=== PATIENT | female | born 1965 | race Caucasian/White ===

== ENCOUNTER 2016-08-06 08:20 | Emergency (ER) | payer BC ==
[2016-08-06] MEDS ORDERED: methylPREDNISolone 125 MG* 2 ML VIAL IV ONE (08:33)
[2016-08-06] MEDS ORDERED: NS 0.9% 1000 ML* 1,000 ML IV ONE (08:33)
[2016-08-06] MEDS: Albuterol/Ipratropium NEB.SOL* Albuterol 2.5 MG/Ipratropium 0.5 MG 3 ML INH SCH ×3 (08:52→09:49)
[2016-08-06 09:05] LABS: Hematocrit 41 % (35-47); Hemoglobin 14.2 g/dl (12.0-16.0); Mean Corpuscular HGB Conc 34 g/dl (31-36); Mean Corpuscular Hemoglobin 31 pg (27-31); Mean Corpuscular Volume 91 fL (80-97); Mean Platelet Volume 8 um3 (7.4-10.4); Red Blood Count 4.53 10^6/ul (4.0-5.4); Red Cell Distribution Width 12 % (10.5-15); White Blood Count 10.4 10^3/ul (3.5-10.8)
[2016-08-06 09:21] LABS: Albumin 3.8 g/dL (3.2-5.2); BUN/Creatinine Ratio 13.6 (8-20); C Reactive Protein 97.11 mg/L (< 5.00); Calcium 9.1 mg/dL (8.6-10.3); EGFR African American 121.9 (>60); EGFR Non-African American 94.8 (>60); Globulin 3.9 g/dL (2-4); Potassium 3.5 mmol/L (3.5-5.0); Total Bilirubin 0.8 mg/dL (0.2-1.0); Total Protein 7.7 g/dL (6.4-8.9)
[2016-08-06 09:23] LABS: Troponin I 0.01 ng/mL (<0.04)
--- NOTE | 2016-08-06 10:20 | RAD ---
Indication: Shortness of breath. Single frontal view of the chest performed at 0838 hours was reviewed. Comparison is made with previous exam dated March 06, 2011. No mediastinal shift is noted. Airspace disease in the lingula with silhouetting of the left cardiac border is noted consistent with lingular pneumonia. Right lung field is clear. IMPRESSION: FINDINGS SUGGESTIVE OF LINGULAR PNEUMONIA.
[2016-08-06 11:26] LABS: Urine Bacteria 1+ (Absent); Urine Bilirubin Negative (Negative); Urine Glucose Negative (Negative); Urine Nitrite Negative (Negative)
[2016-08-06] MEDS ORDERED: Levofloxacin 750 MG IVPREMIX(* 750 MG/150 ML BAG IVPB ONE (11:29)
[2016-08-06 13:33] VITALS: BP 122/71
--- NOTE | 2016-08-06 17:44 | ED ---
Sae Hutchinson Michael, scribed for Thomas Arevalo MD on 08/06/16 at 0836 . Respiratory - HPI Summary HPI Summary: 51 y/o female comes to the ED presenting with a non-productive cough and fever for the past week. The pt reports that she visited a doctor's office 4 days ago , and she was prescribed Augmentin. The abx has not alleviated her symptoms, and the cough has worsened since the visit. The cough aggravates the pt's asthma. The pt also c/o fatigue and chest pain upon deep breaths and coughing. The PMHx is significant for COPD and asthma. The FHx is significant for asthma. - History of Current Complaint Chief Complaint: EDAsthma Stated Complaint: DIFF BREATHING / ASTHMA Time Seen by Provider: 08/06/16 08:33 Hx Obtained From: Patient, Medical Records Onset/Duration: Gradual Onset, Lasting Weeks, Still Present Timing: Constant Initial Severity: Moderate Current Severity: Moderate Pain Intensity: 5 Character: Cough (Nonproductive) Alleviating Factor(s): Nothing Associated Signs and Symptoms: Fever - fatigue. cough., Chest Pain with Cough - Allergy/Home Medications Allergies/Adverse Reactions: Allergies Allergy/AdvReac Type Severity Reaction Status Date / Time No Known Allergies Allergy Verified 08/06/16 08:22 PMH/Surg Hx/FS Hx/Imm Hx Respiratory History: Reports: Hx Asthma, Hx Chronic Obstructive Pulmonary Disease (COPD), Hx Pneumonia - Cancer History Hx Chemotherapy: No Hx Radiation Therapy: No Infectious Disease History: No Infectious Disease History: Denies: Traveled Outside the [place] in Last 30 Days - Family History Known Family History: Positive: Other - asthma - Social History Occupation: Employed Full-time Lives: With Family Review of Systems Positive: Fever, Fatigue Positive: Chest Pain Positive: Cough All Other Systems Reviewed And Are Negative: Yes Physical Exam - Summary Physical Exam Summary: VITAL SIGNS: Reviewed. GENERAL: Patient is a well developed and nourished female with some distress secondary to the shortness of breath. However, she is able to speak in full sentences. HEAD AND FACE: Normocephalic and atraumatic. EYES: PERRLA, EOMI x 2, No injected conjunctiva. EARS: Hearing grossly intact. Ear canals and tympanic membranes WNL MOUTH: Dry oral mucosa. NECK: Supple, trachea is midline, no adenopathy, no JVD, no carotid bruit. CHEST: Symmetric, No intercostal or abdominal retraction, LUNGS: Diffuse bilateral wheezing and decreased breath sounds.No crackles. CVS: RRR,, S1 and S2 present, no murmurs or gallops appreciated. ABDOMEN: Soft, non-tender. No signs of distention. Positive BS. No rebound, no guarding, and no masses palpated. EXTREMITIES: FROM in all major joints, no edema, no cyanosis or clubbing. NEURO: Alert and oriented x 3. No acute neurological deficits. Speech is normal and follows commands. SKIN: Dry and warm Triage Information Reviewed: Yes Vital Signs On Initial Exam: Initial Vitals Temp Pulse Resp BP Pulse Ox 98.4 F 103 22 97/80 93 08/06/16 08:22 08/06/16 08:22 08/06/16 08:22 08/06/16 08:22 08/06/16 08:22 Vital Signs Reviewed: Yes Diagnostics - Vital Signs Vital Signs Temp Pulse Resp BP Pulse Ox 08/06/16 08:22 98.4 F 103 22 97/80 93 - Laboratory Lab Results: Lab Results 08/06/16 08/06/16 08/06/16 Range/Units 08:50 08:50 08:50 WBC 10.4 (3.5-10.8) 10^3/ul RBC 4.53 (4.0-5.4) 10^6/ul Hgb 14.2 (12.0-16.0) g/dl Hct 41 (35-47) % MCV 91 (80-97) fL MCH 31 (27-31) pg MCHC 34 (31-36) g/dl RDW 12 (10.5-15) % Plt Count 321 (150-450) 10^3/ul MPV 8 (7.4-10.4) um3 Neut % (Auto) 74.4 (38-83) % Lymph % (Auto) 13.0 L (25-47) % [place] % (Auto) 10.2 H (1-9) % Eos % (Auto) 1.7 (0-6) % Baso % (Auto) 0.7 (0-2) % Absolute Neuts (auto) 7.8 H (1.5-7.7) 10^3/ul Absolute Lymphs (auto) 1.4 (1.0-4.8) 10^3/ul Absolute Monos (auto) 1.1 H (0-0.8) 10^3/ul Absolute Eos (auto) 0.2 (0-0.6) 10^3/ul Absolute Basos (auto) 0.1 (0-0.2) 10^3/ul Absolute Nucleated RBC 0.01 10^3/ul Nucleated RBC % 0.1 Sodium 134 (133-145) mmol/L Potassium 3.5 (3.5-5.0) mmol/L Chloride 103 (101-111) mmol/L Carbon Dioxide 23 (22-32) mmol/L Anion Gap 8 (2-11) mmol/L BUN 9 (6-24) mg/dL Creatinine 0.66 (0.51-0.95) mg/dL Est GFR ( Amer) 121.9 (>60) Est GFR (Non-Af Amer) 94.8 (>60) BUN/Creatinine Ratio 13.6 (8-20) Glucose 115 H (70-100) mg/dL Lactic Acid 1.3 (0.5-2.0) mmol/L Calcium 9.1 (8.6-10.3) mg/dL Total Bilirubin 0.80 (0.2-1.0) mg/dL AST 64 H (13-39) U/L ALT 176 H (7-52) U/L Alkaline Phosphatase 457 H (34-104) U/L Troponin I 0.01 (<0.04) ng/mL C-Reactive Protein 97.11 H (< 5.00) mg/L Total Protein 7.7 (6.4-8.9) g/dL Albumin 3.8 (3.2-5.2) g/dL Globulin 3.9 (2-4) g/dL Albumin/Globulin Ratio 1.0 (1-3) Result Diagrams: 08/06/16 08:50 08/06/16 08:50 Lab Statement: Any lab studies that have been ordered have been reviewed, and results considered in the medical decision making process. - Radiology CXR Xray Interpretation: Positive (See Comments) - FINDINGS SUGGESTIVE OF LINGULAR PNEUMONIA. Radiology Interpretation Completed By: Radiologist Disposition - Course Course Of Treatment: the blood work is within normal limits- AST 64, ALT 176, Phosphate 457, C-reactive protein 97.11, and influenza A and B are negative. The Unrine Analysis is negative for UTI. CXR shows lingular PNA. Pt was given Solumedrol and Levofloxacin for asthma/wheezing and PNA. After medication, the patient improved. She will be discharged and will follow up with PCP. The patient will take Levofloxacin for the next 10 days. She is hemodynamically stable and alert/oriented X3. I discussed all the findings and test results with the patient. Patient was instructed to return to the emergency room immediately if any of the symptoms return or worsens. Plan of care was discussed with the patient and understands and agrees. All questions were answered at patient satisfaction. There were no further complaints or concerns. Lung exam before discharge: CTA B/L. Good air exchange. No wheezing or crackles heard. CVS: S1 and S2 present. No murmurs appreciated. Patient is alert and oriented x 3. Patient is hemodynamically stable. Patient will be discharged home with follow up clerical proofreader in the next 2-3 days - Differential Dx - Cardiopulmonary Differential Diagnoses - Cardiopulmonary: Asthma, Bronchitis - Diagnoses Provider Diagnoses: Pneumonia, Asthma exacerbation Discharge - Discharge Plan Condition: Stable Disposition: HOME Prescriptions: Levofloxacin TAB* [Levaquin TAB*] 750 mg PO DAILY #10 tab Patient Education Materials: Asthma (ED), Acute Bronchitis (ED), Pneumonia (ED) Forms: *Work Release Referrals: Cale Gipson MD [Primary Care Provider] - Additional Instructions: You will follow up with Dr. Gipson within the next 2-3 days. The documentation as recorded by the Sae glass Michael accurately reflects the service I personally performed and the decisions made by me, Thomas Arevalo MD.
== END 2016-08-06 13:43 | disposition home or self-care (01) ==
LOC: ED 08:20
DX: J18.9 Pneumonia, unspecified organism (principal); J45.901 Unspecified asthma with (acute) exacerbation; R50.9 Fever, unspecified; R53.83 Other fatigue; R05 Cough; R07.9 Chest pain, unspecified
CPT/HCPCS: 36415; 71010; 80053; 81003; 81015; 83605; 83880; 84484; 85025; 86140; 87070; 87086; 87205; 87502; 94640; 96374; 99283; A9270-GY; J2930

== ENCOUNTER 2016-09-07 10:18 | Emergency (ER) | payer BC ==
[2016-09-07] MEDS ORDERED: NS 0.9% 1000 ML* 1,000 ML IV ONE (10:32)
[2016-09-07] MEDS ORDERED: methylPREDNISolone SOD SUCC* 125 MG 2 ML VIAL IV ONE (10:32)
--- NOTE | 2016-09-07 11:13 | RAD ---
INDICATION: Wheezing COMPARISON: Chest x-ray August 06, 2016 TECHNIQUE: PA and lateral dual-energy views were obtained. FINDINGS: Bones/Soft Tissues: There are no acute bony findings. Cardiomediastinal: The cardiomediastinal silhouette is normal. Lungs: There is mild platelike atelectasis in the lingula. The lungs are otherwise clear.. Pleura: There are no pleural effusions. Other: None IMPRESSION: NEAR COMPLETE RESOLUTION OF THE LINGULAR ABNORMALITIES. MINIMAL LINGULAR ATELECTASIS.
[2016-09-07] MEDS ORDERED: Albuterol/Ipratropium NEB.SOL* Albuterol 2.5 MG/Ipratropium 0.5 MG 3 ML ONE (11:30)
[2016-09-07] MEDS: Albuterol/Ipratropium NEB.SOL* Albuterol 2.5 MG/Ipratropium 0.5 MG 3 ML INH SCH ×3 (11:36→14:10)
[2016-09-07 11:56] LABS: Hematocrit 42 % (35-47); Hemoglobin 14.1 g/dl (12.0-16.0); Mean Corpuscular HGB Conc 34 g/dl (31-36); Mean Corpuscular Hemoglobin 31 pg (27-31); Mean Corpuscular Volume 93 fL (80-97); Mean Platelet Volume 8 um3 (7.4-10.4); Red Blood Count 4.51 10^6/ul (4.0-5.4); Red Cell Distribution Width 14 % (10.5-15)
[2016-09-07 12:13] LABS: BUN/Creatinine Ratio 13.6 (8-20); C Reactive Protein 4.95 mg/L (< 5.00); Calcium 9.2 mg/dL (8.6-10.3); EGFR African American 96.3 (>60); EGFR Non-African American 74.8 (>60); Total Bilirubin 0.7 mg/dL (0.2-1.0)
[2016-09-07] MEDS ORDERED: GuaiFENesin DM* 5 ML UDC PO ONE (13:32)
[2016-09-07 15:56] VITALS: BP 129/76
--- NOTE | 2016-09-07 18:22 | ED ---
Sammy Hutchinson Matthew, scribed for Thomas Arevalo MD on 09/07/16 at 1034 . Respiratory - HPI Summary HPI Summary: A 51 y/o female presents to the ED progressively worsening non-productive cough over the last 4 days. Associated symptoms include SOB and chest tightness. She denies fever, chills, and chest pain. The patient used an inhaler, which is not relieving her symptoms. PMHx includes asthma. She is a smoker. - History of Current Complaint Chief Complaint: EDUpperRespComplaint Stated Complaint: DIFF BREATHING Time Seen by Provider: 09/07/16 10:27 Hx Obtained From: Patient Onset/Duration: Gradual Onset, Lasting Days - 4, Still Present Timing: Constant Initial Severity: Mild Current Severity: Moderate Character: Cough (Nonproductive) Sputum Amount: None Aggravating Factor(s): Nothing Alleviating Factor(s): Nothing Associated Signs and Symptoms: SOB - Allergy/Home Medications Allergies/Adverse Reactions: Allergies Allergy/AdvReac Type Severity Reaction Status Date / Time Levofloxacin Allergy Rash Verified 09/07/16 12:52 PMH/Surg Hx/FS Hx/Imm Hx Respiratory History: Reports: Hx Asthma, Hx Chronic Obstructive Pulmonary Disease (COPD), Hx Pneumonia - Cancer History Hx Chemotherapy: No Hx Radiation Therapy: No Infectious Disease History: Denies: Traveled Outside the [place] in Last 30 Days - Family History Known Family History: Positive: Other - asthma - Social History Alcohol Use: None Substance Use Type: Reports: None Smoking Status (MU): Former Smoker Review of Systems Constitutional: Negative Negative: Fever, Chills Eyes: Negative ENT: Negative Cardiovascular: Other - chest tightness Negative: Chest Pain Positive: Shortness Of Breath, Cough Gastrointestinal: Negative Genitourinary: Negative Musculoskeletal: Negative Skin: Negative Neurological: Negative Psychological: Normal All Other Systems Reviewed And Are Negative: Yes Physical Exam - Summary Physical Exam Summary: VITAL SIGNS: Reviewed. GENERAL: Patient is a well developed and nourished female with some distress secondary to the shortness of breath. However, she is able to speak in full sentences. HEAD AND FACE: Normocephalic and atraumatic. EYES: PERRLA, EOMI x 2, No injected conjunctiva. EARS: Hearing grossly intact. Ear canals and tympanic membranes WNL MOUTH: Dry oral mucosa. NECK: Supple, trachea is midline, no adenopathy, no JVD, no carotid bruit. CHEST: Symmetric, No intercostal or abdominal retraction, LUNGS: Diffuse bilateral wheezing and decreased breath sounds.No crackles. CVS: RRR,, S1 and S2 present, no murmurs or gallops appreciated. ABDOMEN: Soft, non-tender. No signs of distention. Positive BS. No rebound, no guarding, and no masses palpated. EXTREMITIES: FROM in all major joints, no edema, no cyanosis or clubbing. NEURO: Alert and oriented x 3. No acute neurological deficits. Speech is normal and follows commands. SKIN: Dry and warm Triage Information Reviewed: Yes Vital Signs On Initial Exam: Initial Vitals Temp Pulse Resp BP Pulse Ox 96.9 F 77 20 129/83 98 09/07/16 10:20 09/07/16 10:20 09/07/16 10:20 09/07/16 10:20 09/07/16 10:20 Vital Signs Reviewed: Yes Diagnostics - Vital Signs Vital Signs Temp Pulse Resp BP Pulse Ox 09/07/16 10:20 96.9 F 77 20 129/83 98 - Laboratory Result Diagrams: 09/07/16 11:42 09/07/16 11:42 Lab Statement: Any lab studies that have been ordered have been reviewed, and results considered in the medical decision making process. - Radiology CXR Xray Interpretation: No Acute Changes - IMPRESSION: NEAR COMPLETE RESOLUTION OF THE LINGULAR ABNORMALITIES. MINIMAL LINGULAR ATELECTASIS. Radiology Interpretation Completed By: Radiologist Re-Evaluation - Re-Evaluation First Eval Re-Evaluation Time: 13:28 Change: Improved Comment: The patient's SOB has improved Disposition - Course Assessment/Plan: A 51 y/o female presents to the ED progressively worsening non- productive cough over the last 4 days. Associated symptoms include SOB and chest tightness. She denies fever, chills, and chest pain. The patient used an inhaler, which is not relieving her symptoms. PMHx includes asthma. She is a smoker. Blood work WNL. [facility] DIRECTOR shows no acute pathology. The patient had some atelectasis, but improving. In the ED course, the patient was wheezing therefore she was given two DuoNeb and solumedrol. After the medications, her symptoms improved. The patient was also given robitussin and her cough improved. On reexamination before discharge her lungs were CTA bilaterally. The patient feels better and is sating 99% on room air. I have no suspicion of ACS since she is not having chest pain. I suspect no PE since the patient is not tachycardic and she is not hypoxic. I discussed all the findings and test results with the patient. Patient was instructed to return to the emergency room immediately if any of the symptoms return or worsens. Plan of care was discussed with the patient and understands and agrees. All questions were answered at patient satisfaction. There were no further complaints or concerns. Lung exam before discharge: CTA B/L. Good air exchange. No wheezing or crackles heard. CVS: S1 and S2 present. No murmurs appreciated. Patient is alert and oriented x 3. Patient is hemodynamically stable. Patient will be discharged home with follow up interactive media project manager in the next 2-3 days - Differential Dx - Cardiopulmonary Differential Diagnoses - Cardiopulmonary: Asthma, CHF, Lower Resp Infection - Diagnoses Provider Diagnoses: Asthma exacerbation Discharge - Discharge Plan Condition: Stable Disposition: HOME Prescriptions: Albuterol 2.5MG/3ML (0.083%)* [Ventolin 2.5 MG/3 ML NEB.CAROL*] 2.5 mg INH Q4H #1 btl Albuterol HFA INHALER* [Ventolin HFA Inhaler*] 1 puff INH Q4H PRN #1 mdi PRN Reason: Shortness Of Breath Respiratory Therapy Supplies [Nebulizer Kit/Tubing/Mout] 1 kit .SEE ORDER . DIRECTED #1 kit predniSONE TAB* [Deltasone TAB*] 40 mg PO DAILY #10 tab Patient Education Materials: Albuterol (By breathing), Prednisone (By mouth), Dyspnea (ED) Referrals: [facility] [Outside] - As Soon As Possible (Referral made to [facility] for nebulizer. Patient should receive delivery of nebulizer tonight.) Cale Gipson MD [Primary Care Provider] - 3 Days Additional Instructions: Please follow-up with your primary care physician in 3 days. The documentation as recorded by the Sammy glass Matthew accurately reflects the service I personally performed and the decisions made by , Thomas Arevalo MD.
== END 2016-09-07 15:55 | disposition home or self-care (01) ==
LOC: ED 10:18
DX: J45.901 Unspecified asthma with (acute) exacerbation (principal); Z87.891 Personal history of nicotine dependence; J44.9 Chronic obstructive pulmonary disease, unspecified; Z87.01 Personal history of pneumonia (recurrent)
CPT/HCPCS: 36415; 71020; 80053; 83605; 85025; 86140; 94640; 96360; 96374; 99283; A9270-GY; J2930

== ENCOUNTER 2017-08-23 22:18 | Emergency (ER) | payer BC ==
[2017-08-23] MEDS ORDERED: methylPREDNISolone 125 MG* 2 ML VIAL IM ONE (23:18)
[2017-08-23] MEDS ORDERED: Albuterol/Ipratropium NEB.SOL* Albuterol 2.5 MG/Ipratropium 0.5 MG 3 ML INH ONE (23:18)
[2017-08-24 00:34] VITALS: BP 117/74
--- NOTE | 2017-08-24 01:36 | ED ---
Shortness of Breath - HPI Summary HPI Summary: Patient is a 52-year-old smoker with history of asthma and COPD, presenting to the ED with chief complaint of wheezing and worsening shortness of breath over the past 2 days. Denies any recent illness. Denies any recent history of pneumonia. She did not receive the flu vaccine. She denies any fevers, sweats , chills. Denies any chest pain. She has been seen for this several times in the past and has needed steroids and nebulizer treatments for relief. She uses Brio and her albuterol inhaler at home, but these have been without relief. She does not wear oxygen at home. She was recently taken off Spiriva several months ago and switched to Brio. - History of Current Complaint Chief Complaint: EDAsthma Time Seen by Provider: 08/23/17 23:06 Hx Obtained From: Patient Onset/Duration: Sudden Onset Timing: Constant Current Severity: Moderate Dyspnea At: Rest Aggrevating Factors: Deep Breaths Alleviating Factors: Bronchodilators - Risk Factors Pulmonary Embolism: Negative Cardiac: Negative Pseudomonas: Chronic Lung Disease Tuberculosis: Smoking - Allergy/Home Medications Allergies/Adverse Reactions: Allergies Allergy/AdvReac Type Severity Reaction Status Date / Time levofloxacin Allergy Rash Verified 08/23/17 23:33 PMH/Surg Hx/FS Hx/Imm Hx Previously Healthy: Yes Respiratory History: Reports: Hx Asthma, Hx Chronic Obstructive Pulmonary Disease (COPD), Hx Pneumonia - Cancer History Hx Chemotherapy: No Hx Radiation Therapy: No - Immunization History Date of Tetanus Vaccine: UTD Date of Influenza Vaccine: none Hx Pertussis Vaccination: No Immunizations Up to Date: Unable to Obtain/Confirm Infectious Disease History: No Infectious Disease History: Denies: Traveled Outside the [place] in Last 30 Days - Family History Known Family History: Positive: Other - asthma - Social History Occupation: Employed Full-time Lives: With Family Alcohol Use: None Hx Substance Use: No Substance Use Type: Reports: None Hx Tobacco Use: Yes Smoking Status (MU): Heavy Every Day Tobacco Smoker Review of Systems Constitutional: Negative Negative: Fever, Chills, Fatigue, Skin Diaphoresis Negative: Photophobia, Blurred Vision Negative: Palpitations, Chest Pain Positive: Shortness Of Breath. Negative: Cough Positive: no symptoms reported, see HPI Neurological: Negative Psychological: Normal All Other Systems Reviewed And Are Negative: Yes Physical Exam Triage Information Reviewed: Yes Vital Signs On Initial Exam: Initial Vitals Temp Pulse Resp BP Pulse Ox 98.1 F 85 22 136/87 94 08/23/17 22:22 08/23/17 22:22 08/23/17 22:22 08/23/17 22:22 08/23/17 22:22 Vital Signs Reviewed: Yes Appearance: Positive: Well-Appearing, Well-Nourished Skin: Positive: Warm, Skin Color Reflects Adequate Perfusion Head/Face: Positive: Normal Head/Face Inspection Eyes: Positive: EOMI, KARMA, Conjunctiva Clear Neck: Positive: Supple, No Lymphadenopathy Respiratory/Lung Sounds: Positive: Wheezes. Negative: Decreased Breath Sounds, Rales, Rhonchi, Subcutaneous Emphysema Cardiovascular: Positive: RRR, Pulses are Symmetrical in both Upper and Lower Extremities Musculoskeletal: Positive: Normal, Strength/ROM Intact Neurological: Positive: Speech Normal Psychiatric: Positive: Normal, Affect/Mood Appropriate AVPU Assessment: Alert Diagnostics - Vital Signs Vital Signs Temp Pulse Resp BP Pulse Ox 08/24/17 00:34 98.1 F 77 16 117/74 94 08/24/17 00:30 77 117/74 08/24/17 00:01 75 131/80 08/24/17 00:00 77 90 08/23/17 23:34 86 97 08/23/17 23:30 118/103 08/23/17 23:25 77 16 98 08/23/17 23:09 80 92 08/23/17 23:06 145/87 08/23/17 22:22 98.1 F 85 22 136/87 94 - Laboratory Lab Statement: Any lab studies that have been ordered have been reviewed, and results considered in the medical decision making process. Course/Dx - Course Course Of Treatment: During the course of treatment, the patient is evaluated for shortness of breath and wheezing. Despite albuterol treatments and her at home Briel medication, she continues to remain with worsening shortness of breath and wheezing. History of asthma and COPD and continues to smoke. Chest x-ray obtained and read by myself, Anita Azul as normal with compared to previous studies. No cardiopulmonary disease is noted. This will be read by the morning radiologist and we'll call with any differing results. She is given 125 mg IM Solu-Medrol. DuoNeb inhalation treatment with relief. She is feeling much improved. I have given her prescription for 50 mg prednisone tabs once daily 5 days as well as DuoNeb for at-home use. She states she has a nebulizer machine at home which she is able to use. She voices no concerns at this time and will follow up with her PCP. - Diagnoses Differential Diagnosis/HQI/PQRI: Positive: Asthma, Bronchitis Provider Diagnoses: Asthma exacerbation Discharge - Sign-Out/Discharge Documenting (check all that apply): Discharge - Discharge Plan Condition: Stable Disposition: HOME Prescriptions: Albuterol/Ipratropium NEB.CAROL* [Duoneb (Albuterol 2.5 MG/Ipratropium 0.5 MG)] 1 neb INH Q6H #20 neb.carol MDD 12 predniSONE TAB* [Deltasone TAB*] 50 mg PO DAILY #5 tab MDD 1 Patient Education Materials: Shortness of Breath (ED) Referrals: Cale Gipson MD [Primary Care Provider] - Additional Instructions: DUO-NEB up to every 6 hours for shortness of breath Prednisone 50mg once daily (IN THE MORNING) Please follow upwith your PCP For worsening symptoms, return to the ED immediately. - Billing Disposition and Condition Condition: STABLE Disposition: HOME
--- NOTE | 2017-08-24 07:46 | RAD ---
HISTORY: Shortness of breath, cough, asthma COMPARISONS: September 07, 2016 VIEWS: 4: Frontal dual-energy and lateral views of the chest. FINDINGS: CARDIOMEDIASTINAL SILHOUETTE: The cardiomediastinal silhouette is normal. JOHN: The john are normal. PLEURA: The costophrenic angles are sharp. No pleural abnormalities are noted. LUNG PARENCHYMA: There is hyperinflation with flattening of the diaphragm and expansion of the AP diameter of the chest. There is stable linear opacification of the lingula consistent with pleural parenchymal scarring. ABDOMEN: The upper abdomen is clear. There is no subphrenic gas. BONES AND SOFT TISSUES: No bone or soft tissue abnormalities are noted. OTHER: None. IMPRESSION: HYPERINFLATION, CONSISTENT WITH COPD. NO ACTIVE CARDIOPULMONARY DISEASE.
== END 2017-08-24 00:35 | disposition home or self-care (01) ==
LOC: ED 22:18
DX: J45.901 Unspecified asthma with (acute) exacerbation (principal); R06.02 Shortness of breath; F17.210 Nicotine dependence, cigarettes, uncomplicated
CPT/HCPCS: 71046; 94640; 99282; A9270-GY; J2930